=== PATIENT | male | born 1980 | race Caucasian/White ===

== ENCOUNTER 2025-05-08 18:51 | Inpatient (IN) | payer MEDICAID ==
[~2025-05-08] VITALS: Ht 165.1 cm; Wt 61.9 kg
[2025-05-08 18:52] VITALS: O2SAT 99
[2025-05-08 20:16] LABS: BASOPHILS % 0.4 % (0.0-2.0); EOSINOPHILS % 0.0 % (0.0-5.0); HEMATOCRIT. 44.8 % (42.0-52.0); HEMOGLOBIN. 15.4 g/dL (14.0-18.0); LYMPHOCYTES % 16.5 % (20.0-50.0); MEAN PLATELET VOLUME 7.7 fl (7.4-10.4); MONOCYTES % 6.2 % (2.0-8.0); NEUTROPHILS % 76.9 % (40.0-76.0); PLATELET 194 x1000/uL (130-400); RED BLOOD CELL COUNT 5.62 mill/uL (4.7-6.1); RED CELL DISTRIBUTION WIDTH 16.8 % (11.6-14.6)
[2025-05-08 20:31] LABS: CREATININE 1.0 mg/dL (0.6-1.3)
[2025-05-08 20:32] LABS: ETHANOL BLOOD 300 mg/dL (<10); UREA NITROGEN BLOOD 16 mg/dL (9-23)
[2025-05-08 20:33] LABS: ASPARTATE AMINOTRANSFERASE 388 IU/L (<34); BILIRUBIN DIRECT 0.3 mg/dL (<=3.0)
[2025-05-08 20:34] LABS: BILIRUBIN TOTAL 1.3 mg/dL (0.1-1.0); PROTEIN TOTAL 7.2 g/dL (6.0-8.3)
[2025-05-08] MEDS ORDERED: ONDANSETRON HCL 4MG/2ML INJ IV ONE (22:30)
[2025-05-09] VITALS (7 sets, daily range): BP systolic 117–135; BP diastolic 62–83; PULSE 68–93; RESP 18–19; TEMP 36.3–37.6; O2SAT 97–99
[2025-05-09] MEDS: SODIUM CHLORIDE 0.9% 1,000 ML IV ONE (00:44)
[2025-05-09] MEDS ORDERED: GUAIFENESIN 200MG/10ML SUGAR FREE UDC PO PRN (00:45)
[2025-05-09] MEDS ORDERED: ONDANSETRON HCL 4MG/2ML INJ IV PRN (00:45)
[2025-05-09] MEDS ORDERED: MAGNESIUM/ALUMINUM HYDROXIDE/SIMETHICONE 30ML UDC PO PRN (00:45)
[2025-05-09] MEDS ORDERED: CLONIDINE 0.1MG TABLET PO PRN (00:45)
[2025-05-09] MEDS ORDERED: DOCUSATE SODIUM 100MG CAPSULE PO PRN (00:45)
[2025-05-09] MEDS ORDERED: IPRATROPIUM/ALBUTEROL 0.5-3(2.5)MG/3ML NEB HHN PRN (00:45)
[2025-05-09] MEDS ORDERED: LORAZEPAM 2MG/ML UD SYRINGE IV PRN ×2 (00:45)
[2025-05-09] MEDS ORDERED: ONDANSETRON HCL 4MG/2ML INJ IV SCH (01:00)
[2025-05-09] MEDS: FOLIC ACID 1 MG, THIAMINE HCL 100 MG, MVI, ADULT NO.1 10 ML in DEXTROSE 5% WATER 1,000 ML IV ONE (03:54)
[2025-05-09] MEDS: PANTOPRAZOLE SODIUM 40 MG/VIAL IV SCH (09:00)
[2025-05-09] MEDS: ACETAMINOPHEN 325MG TABLET PO PRN (10:30)
[2025-05-09] MEDS: ENOXAPARIN 40MG/0.4ML SYR SUBCUT SCH (10:31)
[2025-05-09 11:50] LABS: BASOPHILS % 0.3 % (0.0-2.0); EOSINOPHILS % 0.3 % (0.0-5.0); HEMATOCRIT. 39.6 % (42.0-52.0); HEMOGLOBIN. 13.8 g/dL (14.0-18.0); LYMPHOCYTES % 16.4 % (20.0-50.0); MEAN PLATELET VOLUME 8.5 fl (7.4-10.4); MONOCYTES % 9.5 % (2.0-8.0); NEUTROPHILS % 73.5 % (40.0-76.0); PLATELET 166 x1000/uL (130-400); RED BLOOD CELL COUNT 5.01 mill/uL (4.7-6.1); RED CELL DISTRIBUTION WIDTH 16.4 % (11.6-14.6)
[2025-05-09 12:05] LABS: INR 0.9
[2025-05-09 12:10] LABS: CREATININE 0.8 mg/dL (0.6-1.3)
[2025-05-09 12:11] LABS: UREA NITROGEN BLOOD 12 mg/dL (9-23)
[2025-05-09 12:12] LABS: ASPARTATE AMINOTRANSFERASE 294 IU/L (<34)
[2025-05-09 12:13] LABS: BILIRUBIN DIRECT 0.5 mg/dL (<=3.0); BILIRUBIN TOTAL 2.2 mg/dL (0.1-1.0); PHOSPHORUS 2.5 mg/dL (2.5-4.9); PROTEIN TOTAL 6.4 g/dL (6.0-8.3)
[2025-05-09 12:55] LABS: HEPATITIS A AB IGM NEGATIVE (Negative); HEPATITIS B CORE AB IGM NEGATIVE (Negative)
[2025-05-09 12:56] LABS: HEPATITIS C AB NON REACTIVE (Neg) (Negative)
[2025-05-09] MEDS: CHLORDIAZEPOXIDE 25MG CAPSULE PO SCH (14:13)
[2025-05-09] MEDS: POTASSIUM CHLORIDE 20MEQ TABLET SR PO SCH (14:13)
[2025-05-09] MEDS: KETOROLAC 15MG/ML VIAL IV PRN (14:14)
[2025-05-09 17:54] LABS: CLARITY URINE CLEAR (CLEAR); COLOR URINE YELLOW (YELLOW); GLUCOSE URINE NEGATIVE (NEGATIVE); KETONES URINE 3+ (NEGATIVE); LEUKOCYTE ESTERASE URINE NEGATIVE (NEGATIVE); NITRITE URINE NEGATIVE (NEGATIVE); OCCULT BLOOD URINE 1+ (NEGATIVE); PH URINE 7.0 (4.5-8.0); PROTEIN URINE 1+ (NEGATIVE); SPECIFIC GRAVITY URINE 1.009 (1.005-1.030); UROBILINOGEN URINE 0.2 E.U./dL (0.2-1.0)
[2025-05-09 18:08] LABS: WBC URINE 0-2 /hpf (0-2)
[2025-05-09 18:09] LABS: BACTERIA URINE TRACE; SQUAMOUS EPITHELIAL CELL URINE RARE /lpf (RARE/1+)
[2025-05-09 18:14] LABS: *AMPHETAMINES SCREEN URINE NEGATIVE (NEGATIVE); *BENZODIAZEPINES SCREEN URINE NEGATIVE (NEGATIVE)
[2025-05-09 18:15] LABS: *BARBITURATES SCREEN URINE NEGATIVE (NEGATIVE); *COCAINE SCREEN URINE NEGATIVE (NEGATIVE); CANNABINOID URINE SCREEN NEGATIVE (NEGATIVE); ECSTASY MDMA SCREEN URINE NEGATIVE (NEGATIVE); METHADONE URINE SCREEN NEGATIVE (NEGATIVE); OPIATES URINE SCREEN NEGATIVE (NEGATIVE); PHENCYCLIDINE URINE SCREEN NEGATIVE (NEGATIVE)
[2025-05-10] VITALS (7 sets, daily range): BP systolic 119–142; BP diastolic 74–86; PULSE 63–78; RESP 18–19; TEMP 36.6–36.8; O2SAT 98–100
[2025-05-10 06:10] LABS: BASOPHILS % 0.3 % (0.0-2.0); EOSINOPHILS % 1.8 % (0.0-5.0); HEMATOCRIT. 42.6 % (42.0-52.0); HEMOGLOBIN. 14.0 g/dL (14.0-18.0); LYMPHOCYTES % 24.7 % (20.0-50.0); MEAN PLATELET VOLUME 8.1 fl (7.4-10.4); MONOCYTES % 7.0 % (2.0-8.0); NEUTROPHILS % 66.2 % (40.0-76.0); PLATELET 149 x1000/uL (130-400); RED BLOOD CELL COUNT 5.28 mill/uL (4.7-6.1); RED CELL DISTRIBUTION WIDTH 16.2 % (11.6-14.6)
[2025-05-10 06:27] LABS: T4 FREE 1.28 ng/dL (0.89-1.76)
[2025-05-10 06:31] LABS: CREATININE 0.9 mg/dL (0.6-1.3); TRIGLYCERIDE 258 mg/dL (0-150); UREA NITROGEN BLOOD 7 mg/dL (9-23)
[2025-05-10 06:32] LABS: LDL CHOLESTEROL 130 mg/dL (5-100)
[2025-05-10] MEDS: POTASSIUM CHLORIDE 20MEQ TABLET SR PO SCH (08:50)
[2025-05-10] MEDS: FOLIC ACID 1MG TABLET PO SCH (08:50)
[2025-05-10] MEDS ORDERED: THIAMINE HCL 100MG TABLET PO SCH (09:00)
[2025-05-10] MEDS ORDERED: LORAZEPAM 2MG/ML UD SYRINGE IV PRN (10:45)
[2025-05-10] MEDS: THIAMINE HCL 100 MG in SODIUM CHLORIDE 0.9% 49 ML IV SCH (11:14)
[2025-05-10] MEDS ORDERED: ATORVASTATIN CALCIUM 20MG TABLET PO SCH (21:00)
== END 2025-05-10 21:20 | disposition home or self-care (01) | DRG 280 ==
LOC: ER 18:51 → 8EST 23:31 → EDBD 23:31 → EDBEDREQTM 23:41 → EDBEDREQ 23:41 → ENRESERV 23:49 → 8WST 05-09 14:40
PROVIDERS: ADMIT Internal Medicine; ATTEND Internal Medicine
DX: K70.10 Alcoholic hepatitis without ascites (principal); E87.1 Hypo-osmolality and hyponatremia; F10.129 Alcohol abuse with intoxication, unspecified; Y90.8 Blood alcohol level of 240 mg/100 ml or more; E87.6 Hypokalemia; E78.5 Hyperlipidemia, unspecified
CPT/HCPCS: 36415; 71045; 76700; 80048; 80061; 80076; 80305; 80320; 81003; 82330; 83036; 83735; 83970; 84100; 84439; 84443; 85025; 86705; 86709; 87340; 93005; 97166; 99285; A4606; J1650; J1885; J2060; J2405; J2470; J3411; J3490; J7030; J7070; G0480